=== PATIENT | female | born 1945 | race Caucasian/White ===

== ENCOUNTER 2020-10-16 09:03 | Outpatient (CLI) | payer MEDICARE, BC | END 2020-10-16 09:04 | disposition home or self-care (01) | LOC: CSHMRI 09:03 | PROVIDERS: ATTEND Surgery | DX: M54.12 Radiculopathy, cervical region (principal); M54.16 Radiculopathy, lumbar region; M47.812 Spondylosis without myelopathy or radiculopathy, cervical region; M47.816 Spondylosis without myelopathy or radiculopathy, lumbar region; M41.9 Scoliosis, unspecified; Z98.890 Other specified postprocedural states | CPT/HCPCS: 72040; 72100; 72141; 72148 ==

== ENCOUNTER 2021-03-07 13:10 | Outpatient (CLI) | payer MEDICARE, BC | END 2021-03-07 13:11 | disposition home or self-care (01) | LOC: CSHMRI 13:10 | PROVIDERS: ATTEND Family Medicine | DX: M25.511 Pain in right shoulder (principal); M75.121 Complete rotator cuff tear or rupture of right shoulder, not specified as traumatic; M25.411 Effusion, right shoulder ==

== ENCOUNTER 2021-04-17 11:46 | Outpatient (CLI) | payer MEDICARE, BC | END 2021-04-17 11:47 | disposition home or self-care (01) | LOC: CSHCT 11:46 | PROVIDERS: ATTEND Urology | DX: N20.0 Calculus of kidney (principal); N28.89 Other specified disorders of kidney and ureter | CPT/HCPCS: 36415; 74178; 80048; 81001; 87077; 87086; 87186 ==